=== PATIENT | male | born 1940 | race Hispanic/Latino ===

== ENCOUNTER 2017-11-27 18:57 | Inpatient (IN) | payer MEDICARE ==
[2017-11-27] MEDS ORDERED: DiphenhydrAMINE 50 mg/ml Inj IVP STA (19:37)
[2017-11-27] MEDS ORDERED: Dexamethasone 4 mg/1 ml IVP STA (19:37)
[2017-11-27] MEDS ORDERED: Clindamycin 300 MG in Sodium Chloride 0.9% 50 ML IVPB STA (19:38)
--- NOTE | 2017-11-27 20:04 | ED PDOC ---
HPI: General Adult Time Seen by Provider: 11/27/17 19:27 Chief Complaint (Nursing): Shortness Of Breath Chief Complaint (Provider): Throat pain History Per: Patient History/Exam Limitations: no limitations Onset/Duration Of Symptoms: Days (x2 weeks) Current Symptoms Are (Timing): Still Present Recently: Treated By A Physician Additional Complaint(s): Herson Mccoy is a 77 year old male, with a past medical history of hypertension, hypercholesterolemia, BPH, semi anxiety, and CABG, who presents to the emergency department complaining of throat pain and tongue swelling onset for x2 weeks. Patient reports pain specially with swallowing. Patient saw PMD who referred him to ENT specialist, Dr. Mejia. He saw specialist on , had nasal laryngoscopy done and was advised to gargle with salt water and baking soda 5 times a day. Patient reports the pain is getting increasingly worst and the swelling began radiating from the right side of neck up to his chin and tongue. He tried to see his own doctor but was only able to get a prescription for ibuprofen and azithromycin. Patient took only one dose with mild improvement of pain, but swelling is still persistent. He denies any fever, chills, rhinorrhea or cough. No further medical complaints. PMD: Ritesh Kilpatrick Past Medical History Reviewed: Historical Data, Nursing Documentation, Vital Signs Vital Signs: Last Vital Signs Temp 99.4 F 11/27/17 23:06 Pulse 77 11/27/17 23:06 Resp 18 11/27/17 23:06 BP 138/70 11/27/17 23:06 Pulse Ox 95 11/27/17 23:32 - Medical History PMH: Benign Prostatic Hyperplasia, CAD, HTN, Hypercholesterolemia Denies: Chronic Kidney Disease - Surgical History Surgical History: CABG, Hernia Repair - Family History Family History: States: Unknown Family Hx - Social History Ex-Smoker (has not smoked in the last 12 months): Yes Alcohol: None Drugs: Denies - Home Medications Home Medications: Ambulatory Orders Medication Instructions Recorded Allopurinol [Zyloprim] 300 mg PO DAILY 11/27/17 Aspirin [Lo-Dose Aspirin EC] 81 mg PO DAILY 11/27/17 Atorvastatin [Lipitor] 40 mg PO DAILY 11/27/17 Carvedilol [Coreg] 6.25 mg PO BID 11/27/17 Docusate Sodium [Colace] 100 mg PO DAILY 11/27/17 Furosemide [Lasix] 40 mg PO DAILY 11/27/17 Irbesartan [Avapro] 300 mg PO DAILY 11/27/17 Pantoprazole [Protonix EC Tab] 40 mg PO DAILY 11/27/17 Paroxetine HCl [Paxil] 40 mg PO DAILY 11/27/17 Potassium Chloride [Klor-Con 10] 10 meq PO DAILY 11/27/17 Tamsulosin [Flomax] 0.4 mg PO DAILY 11/27/17 Warfarin [Coumadin] 1 mg PO DAILY 11/27/17 Warfarin [Coumadin] 5 mg PO DAILY 11/27/17 - Allergies Allergies/Adverse Reactions: Allergies Allergy/AdvReac Type Severity Reaction Status Date / Time No Known Allergies Allergy Verified 11/27/17 21:37 Review of Systems ROS Statement: Except As Marked, All Systems Reviewed And Found Negative Constitutional: Negative for: Fever, Chills ENT: Positive for: Mouth Swelling (tongue swelling), Throat Pain. Negative for : Nose Discharge Respiratory: Negative for: Cough Physical Exam - Reviewed Nursing Documentation Reviewed: Yes Vital Signs Reviewed: Yes - Physical Exam Appears: Positive for: Non-toxic Head Exam: Positive for: ATRAUMATIC, NORMAL INSPECTION, NORMOCEPHALIC Skin: Positive for: Normal Color, Warm, Dry ENT: Positive for: Other (raised right side of tongue with mild tongue edema. No trismus, no soft palate or uvula edema. No dental tenderness. Palpable submandibular tenderness to palpation, questionable discrete swelling of submandibular lymph node. Muffled voice. He is able to tolerate secretions. ) Neck: Positive for: Painless ROM, Supple Cardiovascular/Chest: Positive for: Regular Rate, Rhythm. Negative for: Murmur Respiratory: Positive for: Respiratory Distress (mild) Neurologic/Psych: Positive for: Alert, Oriented - Laboratory Results Result Diagrams: 11/27/17 19:50 11/27/17 19:50 - ECG O2 Sat by Pulse Oximetry: 95 (RA) Pulse Ox Interpretation: Normal Medical Decision Making Medical Decision Making: Initial Impression: soft tissue neck swelling. Differential includes but not limited to severe lymphadenitis, Dc's angina, allergic reaction, angioedema At bedside on arrival for possible acute allergic reaction. Initial Plan: --Type and screen --Neck soft tissue w/o contrast [CT] --EKG --CMP --Magnesium --Phosphorus --CBC w/ differential --PTT --PT --Cleocin 300 mg IVPB --Decadron Inj 10 mg IVP --Benadryl 25 mg IVP --Pepcid 40 mg IVP --Blood culture --Rapid Strep Group A Antigen --Reevaluation 20:20 -Discussed case with Dr. Mejia, who recommends CT of neck with and w/o contrast to include possible salivary stones. 21:40 --On reevaluation, pt appears more comfortable, continues to have tongue swelling and elevation but appears slightly decreased from initial evaluation. Patient's speech is improved, but continues to complain of pain in his throat. EXAM: CT Neck Without and With Intravenous Contrast EXAM DATE/TIME: 11/27/2017 8:22 PM ................ IMPRESSION: 1. The tongue is prominent in size, suggesting swelling. 2. There is mild oral pharyngeal and hypopharyngeal soft tissue thickening with right peripharyngeal fat stranding, suggesting soft tissue edema/inflammation. 3. There are multiple punctate calcifications in the pharyngeal tonsils, suggesting tonsiloliths. 4. There is fluid and mucus in the hypopharyngeal airway. 5. There is mild thickening of the right epiglottis, the aryepiglottic folds, and the upper laryngeal soft tissue, suggesting soft tissue edema/inflammation. 6. There is thickening and calcification of the upper cervical posterior longitudinal ligament. 7. There are small calcifications in the bilateral TMJs, suggesting loose bodies. Thank you for allowing us to participate in the care of your patient. Dictated and Authenticated by: Giuseppe Menendez MD 11/27/2017 11:04 PM Eastern Time ([place] & [place]) 11p On reeval pt continues to feel well, sleeps comfortable. However tongue still edematous. Due to concern about airway, will need ICU for initial observation period. DW Lubna VASQUEZ, [facility] Hospitalist and Dr Starkey ENT, who recommends contined IV antibiotics. Scribe Attestation: Documented by Chinmay Perez, acting as a scribe for Jerri Fernandez MD Provider Scribe Attestation: All medical record entries made by the Scribe were at my direction and personally dictated by me. I have reviewed the chart and agree that the record accurately reflects my personal performance of the history, physical exam, medical decision making, and the department course for this patient. I have also personally directed, reviewed, and agree with the discharge instructions and disposition. Disposition - Clinical Impression Clinical Impression: Pharyngeal edema, Tonsillitis, Tongue edema Counseled Patient/Family Regarding: Studies Performed, Diagnosis - Disposition Disposition Time: 23:00 Condition: CRITICAL
[2017-11-27 20:08] LABS: BASO % 0.2 % (0.0-2.0); EOS % 0.2 % (0.0-4.0); HEMOGLOBIN 12.8 g/dL (12.0-18.0); LYMPH # 1.2 K/uL (1.0-4.3); LYMPH % 8.6 % (20.0-40.0); MEAN CELL VOLUME 92.7 fl (80.0-94.0); MEAN CORPUSCULAR HGB CONC 32.4 g/dL (33.0-37.0); MEAN PLATELET VOLUME 8.8 fl (7.2-11.7); MONO # 1.3 K/uL (0.0-0.8); MONO % 9.6 % (0.0-10.0); NEUT # 11.5 K/uL (1.8-7.0); NEUT % 81.4 % (50.0-75.0); PLATELET COUNT 182 K/uL (130-400); RBC 4.27 Mil/uL (4.40-5.90); RED CELL DISTRIBUTION WIDTH 16.6 % (11.5-14.5); WHITE BLOOD COUNT 14.1 K/uL (4.8-10.8)
[2017-11-27 20:28] LABS: PROTHROMBIN TIME 22.3 Seconds (9.8-13.1)
[2017-11-27 20:29] LABS: ALB/GLOB RATIO 1.1 (1.0-2.1); ALT/SGPT 18 U/L (21-72); AST/SGOT 20 U/L (17-59); BLOOD UREA NITROGEN 16 mg/dl (9-20); CALCIUM 9.4 mg/dL (8.4-10.2); GFR AFRICAN-AMERICAN > 60; GFR NON-AFRICAN AMERICAN > 60
[2017-11-27] MEDS ORDERED: Iohexol 300 100 ML IJ ONE (20:56)
[2017-11-27] MEDS ORDERED: Sodium Chloride 0.9% 100 ML ONE (20:56)
[2017-11-27 21:01] LABS: EOSINOPHIL 1 % (0-7); LYMPHOCYTE 8 % (20-50); MONOCYTE 9 % (0-10); NEUTROPHIL 77 % (42-75); REACTIVE LYMPHOCYTES 5 % (0-0); TOTAL CELLS COUNTED 100
[2017-11-27 21:02] LABS: ANISOCYTOSIS SLIGHT; OVALOCYTES SLIGHT; POIKILOCYTOSIS SLIGHT; STOMATOCYTES SLIGHT
[2017-11-27 21:03] LABS: LARGE PLATELETS PRESENT; PLATELET ESTIMATE NORMAL (NORMAL); SPHEROCYTES SLIGHT
[2017-11-27] MEDS ORDERED: Sodium Chloride 0.9% 1,000 ML IV SCH (23:45)
--- NOTE | 2017-11-27 23:49 | CP.PCM.CON ---
History of Present Illness - History of Present Illness History of Present Illness: CC/Reason for ICU: Possible airway compromise HPI: 77 y/o male with HTN, HLD, BPH, CAD, and ?a fib (on coumadin) who comes in with throat pain and tongue swelling. He has had these for two weeks, and was being seen by Dr. Mejia (ENT) who had performed a nasal scope and then advised only to gargle with NaCl and NaHCO3. Patient did this, however, swelling and pain became worse with radiation to R side. He tried to see his regular doctor today, but could not, so came to ER. Found to have tonsillar swelling with concern for airway compromise, so being admitted to ICU pending possible abscess drainage. Patient denies f/c/n/v/d. States no SOB or difficulty breathing. PMD: Ritesh Kilpatrick MHx/SHx: HTN, HLD, BPH, CAD, A fib; CABG Allergies: NKDA Medications: Per Med Rec Family/Social Hx: Reviewed, no relevant findings. No smoking or significant EtOH. Past Patient History - Infectious Disease Hx of Infectious Diseases: None - Past Medical History & Family History Past Medical History?: Yes - Past Social History Alcohol: None Drugs: Denies - CARDIAC Hx Hypercholesterolemia: Yes Hx Hypertension: Yes - PULMONARY Hx Respiratory Disorders: No - NEUROLOGICAL Hx Neurological Disorder: No - HEENT Other/Comment: Tongue swelling - RENAL Hx Chronic Kidney Disease: No - ENDOCRINE/METABOLIC Hx Endocrine Disorders: No - HEMATOLOGICAL/ONCOLOGICAL Hx Blood Disorders: No - INTEGUMENTARY Hx Dermatological Problems: No - MUSCULOSKELETAL/RHEUMATOLOGICAL Hx Falls: Yes - GASTROINTESTINAL Hx Gastrointestinal Disorders: No - GENITOURINARY/GYNECOLOGICAL Hx Genitourinary Disorders: No - PSYCHIATRIC Hx Psychophysiologic Disorder: No Hx Substance Use: No - SURGICAL HISTORY Hx Coronary Artery Bypass Graft: Yes - ANESTHESIA Hx Anesthesia: Yes Hx Anesthesia Reactions: No Meds Allergies/Adverse Reactions: Allergies Allergy/AdvReac Type Severity Reaction Status Date / Time No Known Allergies Allergy Verified 11/27/17 21:37 - Medications Medications: Current Medications Clindamycin Phosphate 600 mg/ (Sodium Chloride) 54 mls @ 54 mls/hr IVPB Q8 GRETA PRN Reason: Protocol Dexamethasone 4 mg/ Sodium (Chloride) 51 mls @ 102 mls/hr IVPB Q6 GRETA Ondansetron HCl (Zofran Inj) 4 mg IVP Q6H PRN PRN Reason: Nausea/Vomiting Pantoprazole Sodium (Protonix Inj) 40 mg IVP DAILY GRETA Physical Exam - Constitutional Appears: No Acute Distress - Head Exam Head Exam: ATRAUMATIC, NORMOCEPHALIC - Eye Exam Eye Exam: EOMI, PERRL - ENT Exam ENT Exam: Mucous Membranes Moist Additional comments: tongue swollen - Neck Exam Neck exam: Positive for: Full Rom - Respiratory Exam Respiratory Exam: Clear to Auscultation Bilateral, NORMAL BREATHING PATTERN Additional comments: no stridor - Cardiovascular Exam Cardiovascular Exam: REGULAR RHYTHM, +S1, +S2 - GI/Abdominal Exam GI & Abdominal Exam: Normal Bowel Sounds, Soft - Extremities Exam Extremities exam: Positive for: full ROM, normal inspection - Neurological Exam Neurological exam: Alert, CN II-XII Intact, Oriented x3 - Psychiatric Exam Psychiatric exam: Normal Affect, Normal Mood - Skin Skin Exam: Dry, Warm Results - Vital Signs Recent Vital Signs: Last Vital Signs Temp 99.4 F 11/27/17 23:06 Pulse 77 11/27/17 23:06 Resp 18 11/27/17 23:06 BP 138/70 11/27/17 23:06 Pulse Ox 95 11/27/17 23:32 - Labs Result Diagrams: 11/27/17 19:50 11/27/17 19:50 Labs: Laboratory Results - last 24 hr 11/27/17 11/27/17 11/27/17 19:50 19:50 19:50 WBC 14.1 H D RBC 4.27 L Hgb 12.8 Hct 39.6 MCV 92.7 D MCH 30.0 MCHC 32.4 L RDW 16.6 H Plt Count 182 MPV 8.8 Neut % (Auto) 81.4 H Lymph % (Auto) 8.6 L [place] % (Auto) 9.6 Eos % (Auto) 0.2 Baso % (Auto) 0.2 Neut # (Auto) 11.5 H Lymph # (Auto) 1.2 [place] # (Auto) 1.3 H Eos # (Auto) 0.0 Baso # (Auto) 0.0 Neutrophils % (Manual) 77 H Lymphocytes % (Manual) 8 L Reactive Lymphs % 5 H Monocytes % (Manual) 9 Eosinophils % (Manual) 1 Platelet Estimate Normal Large Platelets Present Poikilocytosis (manual Slight Anisocytosis (manual) Slight Macrocytosis (manual) Slight Spherocytes Slight Ovalocytes Slight Stomatocytes Slight PT 22.3 H INR 2.0 H APTT 32.0 Sodium 141 Potassium 3.8 Chloride 103 Carbon Dioxide 25 Anion Gap 17 BUN 16 Creatinine 0.8 Est GFR ( Amer) > 60 Est GFR (Non-Af Amer) > 60 Random Glucose 114 H Calcium 9.4 Phosphorus 3.0 Magnesium 2.0 Total Bilirubin 1.2 AST 20 ALT 18 L D Alkaline Phosphatase 80 Total Protein 7.9 Albumin 4.0 Globulin 3.8 Albumin/Globulin Ratio 1.1 Grp A Beta Strep Ag Blood Type Antibody Screen BBK History Checked 11/27/17 11/27/17 19:50 20:25 WBC RBC Hgb Hct MCV MCH MCHC RDW Plt Count MPV Neut % (Auto) Lymph % (Auto) [place] % (Auto) Eos % (Auto) Baso % (Auto) Neut # (Auto) Lymph # (Auto) [place] # (Auto) Eos # (Auto) Baso # (Auto) Neutrophils % (Manual) Lymphocytes % (Manual) Reactive Lymphs % Monocytes % (Manual) Eosinophils % (Manual) Platelet Estimate Large Platelets Poikilocytosis (manual Anisocytosis (manual) Macrocytosis (manual) Spherocytes Ovalocytes Stomatocytes PT INR APTT Sodium Potassium Chloride Carbon Dioxide Anion Gap BUN Creatinine Est GFR ( Amer) Est GFR (Non-Af Amer) Random Glucose Calcium Phosphorus Magnesium Total Bilirubin AST ALT Alkaline Phosphatase Total Protein Albumin Globulin Albumin/Globulin Ratio Grp A Beta Strep Ag Negative Blood Type A POSITIVE Antibody Screen Negative BBK History Checked Patient has bt - EKG Data EKG Interpreted by: Myself EKG shows normal: Sinus rhythm Rate: Normal - EKG Data EKG comments: NSR with multiple PVCs Assessment & Plan (1) Pharyngeal edema Assessment and Plan: 77 y/o male with ?Tonsilar abscess/swelling, oral/tongue swelling; admitted to ICU because of concern for airway. -Admit to ICU -NPO, will hold all medications till AM -Cont decadron and clinda IV -Protonix for GI PPx -Repeat INR in AM as patient on coumadin, as he may have drainage of tonsil done by ENT -ENT consult (Lal[facility]) in AM -SCDs only for DVT PPx; still therapeutic on coumadin Status: Acute (2) Tongue edema Status: Acute (3) Tonsillitis Status: Acute
[2017-11-28] MEDS ORDERED: Dexamethasone 4 mg/1 ml ONE (03:46)
[2017-11-28] MEDS ORDERED: Dexamethasone 4 MG in Sodium Chloride 0.9% 50 ML IVPB SCH (04:00)
[2017-11-28] MEDS: Dexamethasone 4 mg/1 ml IVP SCH ×4 (04:25→22:26)
[2017-11-28] MEDS: Clindamycin 600mg/50ml NS 600 MG/50 ML BAG IVPB SCH ×3 (04:32→19:16)
[2017-11-28 04:55] LABS: INR 2.1 (0.9-1.2); PROTHROMBIN TIME 23.9 Seconds (9.8-13.1)
--- NOTE | 2017-11-28 09:46 | RAD ---
HISTORY: dysphagia COMPARISON: 08/13/2017 FINDINGS: LUNGS: Shallow lung volumes accentuating the central pulmonary vasculature. In addition to crowding, mild pulmonary venous congestion is possible. No consolidation. PLEURA: No significant pleural effusion identified, no pneumothorax apparent. CARDIOVASCULAR: Cardiomegaly para interval midline sternotomy and coronary artery bypass surgery. OSSEOUS STRUCTURES: Thoracic spondylosis. Bilateral shoulder arthrosis. Midline sternotomy. VISUALIZED UPPER ABDOMEN: Normal. OTHER FINDINGS: None. IMPRESSION: Limited exam given more shallow inspiration. In addition to crowding, mild central pulmonary venous congestion is possible. No consolidation Please note: No preliminary interpretation of this examination rendered by emergency department personnel.
--- NOTE | 2017-11-28 10:19 | CT ---
PROCEDURE: CT NECK WITH CONTRAST HISTORY: neck swelling RIGHT side COMPARISON: None TECHNIQUE: CT of the neck with intravenous contrast. Coronal and sagittal reformats generated. Intravenous contrast dose: 95 cc Radiation dose: DLP 840 mGy-cm This CT exam was performed using one or more of the following dose reduction techniques: Automated exposure control, adjustment of the mA and/or kV according to patient size, and/or use of iterative reconstruction technique. FINDINGS: NASOPHARYNX: Unremarkable. SUPRAHYOID NECK: The tongue is prominent consistent with swelling. Right very pharyngeal soft tissue thickening with fat stranding compatible with soft tissue edema/inflammation. Multiple dystrophic like calcifications pharyngeal tonsils /tonsilliths. INFRAHYOID NECK: Fluid/mucous is in the hypopharyngeal airway. Right epiglottic, area right aryepiglottic and upper laryngeal soft tissue thickening compatible TANYA with soft tissue edema/inflammation. The right vallecula and piriform sinuses are effaced. Some thickening of the right vocal cord is suggested GLANDS: Parotid and submandibular glands unremarkable. Normal size thyroid gland, without nodule. LYMPH NODES: Normal. No lymphadenopathy. CERVICAL SPINE: Thickening in ossification of the posterior longitudinal ligament -this encroaches on the spinal canal compartments. Degenerative changes of the each temporomandibular joint also noted VASCULAR STRUCTURES: Atherosclerotic vascular calcifications. OTHER FINDINGS: None. IMPRESSION: Prominent tongue compatible with swelling. Additional oral pharyngeal and hypopharyngeal/laryngeal soft tissue thickening/edema inflammation Tonsilliths. No peritonsillar abscess appreciated Posterior longitudinal thickening and calcification encroach on the spinal canal compartments. Bilateral TMJ senescent changes probable tiny loose bodies. Recommend ENT consultation/ follow-up evaluation Comments: Preliminary report per [facility]rad compatible with this report.
--- NOTE | 2017-11-28 11:07 | CP.CCUPN ---
CCU Subjective - Physician Review Subjective (Free Text): Awake and alert, able to self ambulate in the room, though gait shows mild unsteadiness. Denies any throat pain now, speech still dysarthric at times. Tongue still appears mildly enlarged and swollen, denies any worsening dysphagia. SPO2 95% on RA. Denies any fevers or chills. Other VS and I/Os reviewed. ROS: No other pertinent negs or positives on 10+ system review. PMSFH: All other Nursing and physician documentation reviewed to date; no new pertinent info noted relevant to current medical problems. CXR: ( my interp): hypoexpanded lung elizabeth, haziness over left base. CT Neck results reviewed and mentioned in next section. IMPRESSION / MAJOR PROBLEMS NOW: 1. R/o Right Tonsillar / Submandibular Abscess with R peripharyngeal edema and inflammation, + tonsiloliths, and R epiglottal edema and inflammation. 2. A Fib on therapeutic AC with Warfarin PLAN: 1. Airway and oxygenation observation in ICU over the next 48-72 H. 2. No need for immediate airway protection / maintenance. 3. Empiric abx and steroids started in ED. 4. NPO status for now. ENT f/u regarding any need for surgical drainage, after correction for warfarin-coagulopathy. CCU Objective - Vital Signs / Intake & Output Vital Signs (Last 4 hours): Vital Signs Temp Pulse Pulse Resp BP Pulse Ox 11/28/17 09:42 77 17 96 11/28/17 09:00 77 17 159/78 H 96 11/28/17 08:27 98.8 F 71 20 148/85 11/28/17 07:42 98.8 F 71 20 148/85 97 Intake and Output (Last 8hrs): Intake & Output 11/27/17 11/28/17 11/28/17 22:59 06:59 14:59 Weight 260 lb - Physical Exam Head: Positive for: Normocephalic Pupils: Positive for: PERRL Extroacular Muscles: Positive for: EOMI Conjunctiva: Positive for: Normal Ears: Positive for: Normal Mouth: Positive for: Moist Mucous Membranes. Negative for: Normal Tounge ( enlarged) Pharnyx: Positive for: Muffled/Hoarse Voice Neck: Positive for: Normal Range of Motion, Trachea Midline, Other (R anterior cervical fullness). Negative for: JVD Respiratory/Chest: Positive for: Clear to Auscultation, Decreased Breath Sounds Cardiovascular: Positive for: Irregular Rhythm. Negative for: Murmurs, Rub Abdomen: Positive for: Normal Bowel Sounds. Negative for: Tenderness, Distention, Mass/Organomegaly Lower Extremity: Positive for: Edema, NORMAL PULSES. Negative for: CALF TENDERNESS, Cyanosis Neurological: Positive for: GCS=15, CN II-XII Intact, Motor Func Grossly Intact , Normal Sensory Function Skin: Positive for: Warm, Dry. Negative for: Rashes - Medications Active Medications: Active Medications Generic Name Dose Route Start Last Admin Trade Name Freq PRN Reason Stop Dose Admin Allopurinol 300 mg 11/29/17 09:00 Zyloprim PO DAILY [facility] Aspirin 81 mg 11/29/17 09:00 Ecotrin PO DAILY [facility] Atorvastatin Calcium 40 mg 11/29/17 09:00 Lipitor PO DAILY [facility] Carvedilol 12.5 mg 11/28/17 17:00 Coreg PO BID [facility] Dexamethasone 4 mg 11/28/17 04:00 11/28/17 10:07 Decadron Inj IVP 4 mg Q6 GRETA Administration Docusate Sodium 100 mg 11/29/17 09:00 Colace PO DAILY [facility] Furosemide 40 mg 11/29/17 09:00 Lasix PO DAILY [facility] Clindamycin Phosphate 600 mg in 50 mls @ 50 mls/hr 11/28/17 01:00 11/28/17 04 :32 Cleocin In Normal Saline IVPB 50 mls/hr Q8 GRETA Administration Protocol Ondansetron HCl 4 mg 11/27/17 23:38 Zofran Inj IVP Q6H PRN Nausea/Vomiting Pantoprazole Sodium 40 mg 11/29/17 09:00 Protonix Ec Tab PO DAILY [facility] Paroxetine HCl 40 mg 11/29/17 09:00 Paxil PO DAILY [facility] Potassium Chloride 10 meq 11/29/17 09:00 Klor-Con 10 PO DAILY [facility] Tamsulosin HCl 0.4 mg 11/29/17 09:00 Flomax PO DAILY [facility] Warfarin Sodium 1 mg 11/29/17 09:00 Coumadin PO DAILY [facility] Protocol Warfarin Sodium 5 mg 11/29/17 09:00 Coumadin PO DAILY [facility] Protocol - Patient Studies Lab Studies: Lab Studies 02/21/18 02/20/18 02/20/18 Range/Units 04:17 20:25 19:50 WBC (4.8-10.8) K/uL RBC (4.40-5.90) Mil/uL Hgb (12.0-18.0) g/dL Hct (35.0-51.0) % MCV (80.0-94.0) fl MCH (27.0-31.0) pg MCHC (33.0-37.0) g/dL RDW (11.5-14.5) % Plt Count (130-400) K/uL MPV (7.2-11.7) fl Neut % (Auto) (50.0-75.0) % Lymph % (Auto) (20.0-40.0) % Gregory % (Auto) (0.0-10.0) % Eos % (Auto) (0.0-4.0) % Baso % (Auto) (0.0-2.0) % Neut # (Auto) (1.8-7.0) K/uL Lymph # (Auto) (1.0-4.3) K/uL Gregory # (Auto) (0.0-0.8) K/uL Eos # (Auto) (0.0-0.7) K/uL Baso # (Auto) (0.0-0.2) K/uL Neutrophils % (Manual) (42-75) % Lymphocytes % (Manual) (20-50) % Reactive Lymphs % (0-0) % Monocytes % (Manual) (0-10) % Eosinophils % (Manual) (0-7) % Platelet Estimate (NORMAL) Large Platelets Poikilocytosis (manual Anisocytosis (manual) Macrocytosis (manual) Spherocytes Ovalocytes Stomatocytes PT 23.9 H (9.8-13.1) Seconds INR 2.1 H (0.9-1.2) APTT (25.6-37.1) Seconds Sodium (132-148) mmol/l Potassium (3.6-5.0) MMOL/L Chloride (98-107) mmol/L Carbon Dioxide (22-30) mmol/L Anion Gap (10-20) BUN (9-20) mg/dl Creatinine (0.8-1.5) mg/dl Est GFR ( Amer) Est GFR (Non-Af Amer) Random Glucose (75-110) mg/dL Calcium (8.4-10.2) mg/dL Phosphorus (2.5-4.5) mg/dl Magnesium (1.6-2.3) MG/DL Total Bilirubin (0.2-1.3) mg/dl AST (17-59) U/L ALT (21-72) U/L Alkaline Phosphatase (38-126) U/L Total Protein (6.3-8.2) G/DL Albumin (3.5-5.0) g/dL Globulin (2.2-3.9) gm/dL Albumin/Globulin Ratio (1.0-2.1) Grp A Beta Strep Ag Negative (NEGATIVE) Blood Type A POSITIVE Antibody Screen Negative BBK History Checked Patient has bt 11/27/17 11/27/17 11/27/17 Range/Units 19:50 19:50 19:50 WBC 14.1 H D (4.8-10.8) K/uL RBC 4.27 L (4.40-5.90) Mil/uL Hgb 12.8 (12.0-18.0) g/dL Hct 39.6 (35.0-51.0) % MCV 92.7 D (80.0-94.0) fl MCH 30.0 (27.0-31.0) pg MCHC 32.4 L (33.0-37.0) g/dL RDW 16.6 H (11.5-14.5) % Plt Count 182 (130-400) K/uL MPV 8.8 (7.2-11.7) fl Neut % (Auto) 81.4 H (50.0-75.0) % Lymph % (Auto) 8.6 L (20.0-40.0) % Gregory % (Auto) 9.6 (0.0-10.0) % Eos % (Auto) 0.2 (0.0-4.0) % Baso % (Auto) 0.2 (0.0-2.0) % Neut # (Auto) 11.5 H (1.8-7.0) K/uL Lymph # (Auto) 1.2 (1.0-4.3) K/uL Gregory # (Auto) 1.3 H (0.0-0.8) K/uL Eos # (Auto) 0.0 (0.0-0.7) K/uL Baso # (Auto) 0.0 (0.0-0.2) K/uL Neutrophils % (Manual) 77 H (42-75) % Lymphocytes % (Manual) 8 L (20-50) % Reactive Lymphs % 5 H (0-0) % Monocytes % (Manual) 9 (0-10) % Eosinophils % (Manual) 1 (0-7) % Platelet Estimate Normal (NORMAL) Large Platelets Present Poikilocytosis (manual Slight Anisocytosis (manual) Slight Macrocytosis (manual) Slight Spherocytes Slight Ovalocytes Slight Stomatocytes Slight PT 22.3 H (9.8-13.1) Seconds INR 2.0 H (0.9-1.2) APTT 32.0 (25.6-37.1) Seconds Sodium 141 (132-148) mmol/l Potassium 3.8 (3.6-5.0) MMOL/L Chloride 103 (98-107) mmol/L Carbon Dioxide 25 (22-30) mmol/L Anion Gap 17 (10-20) BUN 16 (9-20) mg/dl Creatinine 0.8 (0.8-1.5) mg/dl Est GFR ( Amer) > 60 Est GFR (Non-Af Amer) > 60 Random Glucose 114 H (75-110) mg/dL Calcium 9.4 (8.4-10.2) mg/dL Phosphorus 3.0 (2.5-4.5) mg/dl Magnesium 2.0 (1.6-2.3) MG/DL Total Bilirubin 1.2 (0.2-1.3) mg/dl AST 20 (17-59) U/L ALT 18 L D (21-72) U/L Alkaline Phosphatase 80 (38-126) U/L Total Protein 7.9 (6.3-8.2) G/DL Albumin 4.0 (3.5-5.0) g/dL Globulin 3.8 (2.2-3.9) gm/dL Albumin/Globulin Ratio 1.1 (1.0-2.1) Grp A Beta Strep Ag (NEGATIVE) Blood Type Antibody Screen BBK History Checked Laboratory Results - last 24 hr 11/27/17 11/27/17 11/27/17 19:50 19:50 19:50 WBC 14.1 H D RBC 4.27 L Hgb 12.8 Hct 39.6 MCV 92.7 D MCH 30.0 MCHC 32.4 L RDW 16.6 H Plt Count 182 MPV 8.8 Neut % (Auto) 81.4 H Lymph % (Auto) 8.6 L Gregory % (Auto) 9.6 Eos % (Auto) 0.2 Baso % (Auto) 0.2 Neut # (Auto) 11.5 H Lymph # (Auto) 1.2 Gregory # (Auto) 1.3 H Eos # (Auto) 0.0 Baso # (Auto) 0.0 Neutrophils % (Manual) 77 H Lymphocytes % (Manual) 8 L Reactive Lymphs % 5 H Monocytes % (Manual) 9 Eosinophils % (Manual) 1 Platelet Estimate Normal Large Platelets Present Poikilocytosis (manual Slight Anisocytosis (manual) Slight Macrocytosis (manual) Slight Spherocytes Slight Ovalocytes Slight Stomatocytes Slight PT 22.3 H INR 2.0 H APTT 32.0 Sodium 141 Potassium 3.8 Chloride 103 Carbon Dioxide 25 Anion Gap 17 BUN 16 Creatinine 0.8 Est GFR ( Amer) > 60 Est GFR (Non-Af Amer) > 60 Random Glucose 114 H Calcium 9.4 Phosphorus 3.0 Magnesium 2.0 Total Bilirubin 1.2 AST 20 ALT 18 L D Alkaline Phosphatase 80 Total Protein 7.9 Albumin 4.0 Globulin 3.8 Albumin/Globulin Ratio 1.1 Grp A Beta Strep Ag Blood Type Antibody Screen BBK History Checked 11/27/17 11/27/17 11/28/17 19:50 20:25 04:17 WBC RBC Hgb Hct MCV MCH MCHC RDW Plt Count MPV Neut % (Auto) Lymph % (Auto) Gregory % (Auto) Eos % (Auto) Baso % (Auto) Neut # (Auto) Lymph # (Auto) Gregory # (Auto) Eos # (Auto) Baso # (Auto) Neutrophils % (Manual) Lymphocytes % (Manual) Reactive Lymphs % Monocytes % (Manual) Eosinophils % (Manual) Platelet Estimate Large Platelets Poikilocytosis (manual Anisocytosis (manual) Macrocytosis (manual) Spherocytes Ovalocytes Stomatocytes PT 23.9 H INR 2.1 H APTT Sodium Potassium Chloride Carbon Dioxide Anion Gap BUN Creatinine Est GFR ( Amer) Est GFR (Non-Af Amer) Random Glucose Calcium Phosphorus Magnesium Total Bilirubin AST ALT Alkaline Phosphatase Total Protein Albumin Globulin Albumin/Globulin Ratio Grp A Beta Strep Ag Negative Blood Type A POSITIVE Antibody Screen Negative BBK History Checked Patient has bt Review of Systems - Review of Systems All systems: reviewed and no additional remarkable complaints except (as above) Critical Care Progress Note - Nutrition Nutrition: Nutrition Category Date Time Status Liquid Diet [DIET] Diets 11/28/17 Lunch Active NPO Diet [DIET] Diets 11/27/17 Breakfast Active
--- NOTE | 2017-11-28 11:41 | CP.PCM.HP ---
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 He has had these for about two weeks, and was seen by Dr. Mejia (ENT) who had performed a nasal scope and then advised to gargle with NaCl and NaHCO3. He was also seen by PCP and was prescribed Zithromax. Patient did this, however, swelling and pain became worse with radiation to R side on ED he was found to have tonsillar and tongue swelling and because of concerns for airway compromise he was admitted to ICU. Patient had CABG by Dr Xiong 3 months ago and had been using Irbesartan. Denies Hx of similar episodes in the past. Present on Admission - Present on Admission Any Indicators Present on Admission: Yes History Surgical Site Infection Following: CABG - Mediastinitis Review of Systems - Review of Systems All systems: reviewed and no additional remarkable complaints except - EENT Nose/Mouth/Throat: Sore Throat, Throat Swelling, Tongue Swelling Past Patient History - Infectious Disease Hx of Infectious Diseases: None - Past Medical History & Family History Past Medical History?: Yes - Past Social History Smoking Status: Former Smoker - CARDIAC Hx Cardiac Disorders: Yes (CAD,CABG,HTN,HLD,AFIB) Hx Hypercholesterolemia: Yes Hx Hypertension: Yes - PULMONARY Hx Respiratory Disorders: No Hx Sleep Apnea: Yes (uses cpap @ home) - NEUROLOGICAL Hx Neurological Disorder: No - HEENT Hx HEENT Problems: No - RENAL Hx Chronic Kidney Disease: No - ENDOCRINE/METABOLIC Hx Endocrine Disorders: No - HEMATOLOGICAL/ONCOLOGICAL Hx Blood Disorders: No Hx AIDS: No Hx Blood Transfusions: No Hx Human Immunodeficiency Virus (HIV): No - INTEGUMENTARY Hx Dermatological Problems: No - MUSCULOSKELETAL/RHEUMATOLOGICAL Hx Musculoskeletal Disorders: No Hx Falls: No Hx Unsteady Gait: Yes - GASTROINTESTINAL Hx Gastrointestinal Disorders: No - GENITOURINARY/GYNECOLOGICAL Hx Genitourinary Disorders: Yes (BPH) - PSYCHIATRIC Hx Psychophysiologic Disorder: No Hx Substance Use: No Other/Comment: former smoker - SURGICAL HISTORY Hx Surgeries: Yes Hx Coronary Artery Bypass Graft: Yes - ANESTHESIA Hx Anesthesia: Yes Hx Anesthesia Reactions: No Meds Allergies/Adverse Reactions: Allergies Allergy/AdvReac Type Severity Reaction Status Date / Time No Known Allergies Allergy Verified 11/27/17 21:37 Physical Exam - Constitutional Appears: Non-toxic, No Acute Distress - Head Exam Head Exam: ATRAUMATIC - Eye Exam Eye Exam: EOMI, PERRL - ENT Exam ENT Exam: Mucous Membranes Moist Additional comments: Tongue swollen. R/tonsil swelling - Neck Exam Neck exam: Positive for: Full Rom. Negative for: Tenderness, Thyromegaly - Respiratory Exam Respiratory Exam: Clear to Auscultation Bilateral, NORMAL BREATHING PATTERN. absent: Rales, Wheezes - Cardiovascular Exam Cardiovascular Exam: REGULAR RHYTHM, +S1, +S2. absent: Gallop - GI/Abdominal Exam GI & Abdominal Exam: Normal Bowel Sounds, Soft. absent: Guarding, Rebound, Tenderness - Extremities Exam Extremities exam: Positive for: normal capillary refill. Negative for: calf tenderness - Neurological Exam Neurological exam: Alert, Normal Gait, Oriented x3 - Psychiatric Exam Psychiatric exam: Normal Affect, Normal Mood - Skin Skin Exam: Normal Color, Warm Results - Vital Signs Recent Vital Signs: Last Vital Signs Temp 98.8 F 11/28/17 08:27 Pulse 77 11/28/17 09:42 Resp 17 11/28/17 09:42 BP 159/78 H 11/28/17 09:00 Pulse Ox 96 11/28/17 09:42 - Labs Result Diagrams: 11/27/17 19:50 11/27/17 19:50 Labs: Laboratory Results - last 24 hr 11/27/17 11/27/17 11/27/17 19:50 19:50 19:50 WBC 14.1 H D RBC 4.27 L Hgb 12.8 Hct 39.6 MCV 92.7 D MCH 30.0 MCHC 32.4 L RDW 16.6 H Plt Count 182 MPV 8.8 Neut % (Auto) 81.4 H Lymph % (Auto) 8.6 L Alcorn % (Auto) 9.6 Eos % (Auto) 0.2 Baso % (Auto) 0.2 Neut # (Auto) 11.5 H Lymph # (Auto) 1.2 Alcorn # (Auto) 1.3 H Eos # (Auto) 0.0 Baso # (Auto) 0.0 Neutrophils % (Manual) 77 H Lymphocytes % (Manual) 8 L Reactive Lymphs % 5 H Monocytes % (Manual) 9 Eosinophils % (Manual) 1 Platelet Estimate Normal Large Platelets Present Poikilocytosis (manual Slight Anisocytosis (manual) Slight Macrocytosis (manual) Slight Spherocytes Slight Ovalocytes Slight Stomatocytes Slight PT 22.3 H INR 2.0 H APTT 32.0 Sodium 141 Potassium 3.8 Chloride 103 Carbon Dioxide 25 Anion Gap 17 BUN 16 Creatinine 0.8 Est GFR ( Amer) > 60 Est GFR (Non-Af Amer) > 60 Random Glucose 114 H Calcium 9.4 Phosphorus 3.0 Magnesium 2.0 Total Bilirubin 1.2 AST 20 ALT 18 L D Alkaline Phosphatase 80 Total Protein 7.9 Albumin 4.0 Globulin 3.8 Albumin/Globulin Ratio 1.1 Grp A Beta Strep Ag Blood Type Antibody Screen BBK History Checked 11/27/17 11/27/17 11/28/17 19:50 20:25 04:17 WBC RBC Hgb Hct MCV MCH MCHC RDW Plt Count MPV Neut % (Auto) Lymph % (Auto) Alcorn % (Auto) Eos % (Auto) Baso % (Auto) Neut # (Auto) Lymph # (Auto) Alcorn # (Auto) Eos # (Auto) Baso # (Auto) Neutrophils % (Manual) Lymphocytes % (Manual) Reactive Lymphs % Monocytes % (Manual) Eosinophils % (Manual) Platelet Estimate Large Platelets Poikilocytosis (manual Anisocytosis (manual) Macrocytosis (manual) Spherocytes Ovalocytes Stomatocytes PT 23.9 H INR 2.1 H APTT Sodium Potassium Chloride Carbon Dioxide Anion Gap BUN Creatinine Est GFR ( Amer) Est GFR (Non-Af Amer) Random Glucose Calcium Phosphorus Magnesium Total Bilirubin AST ALT Alkaline Phosphatase Total Protein Albumin Globulin Albumin/Globulin Ratio Grp A Beta Strep Ag Negative Blood Type A POSITIVE Antibody Screen Negative BBK History Checked Patient has bt Assessment & Plan - Assessment and Plan (Free Text) Assessment: 77 y/o M with multiple co-morbidities admitted for throat and tongue swelling. Throat and tongue swelling Improving after hosp treatment Poss Angioedema Irbesartan held for now(Discussed with Cardio) ENT consult appreciated: Will f/u recs C/W Abx and Steroids F/U Abd US to r/o visceromegaly Repeat CXR since previous poor technique F/U Cultures S/P CABG/CAD Cardiology consult. Discussed with Dr Xiong will evaluate patient Stable. No CP HTN Stop ARBs for now Increase Coreg to 12.5mg BID Hx of Afib C/W Coumadin F/U Cardio recs <Ritesh Kilpatrick - Last Filed: 11/28/17 21:30> Results - Vital Signs Recent Vital Signs: Last Vital Signs Temp 98.3 F 11/28/17 16:00 Pulse 75 11/28/17 18:42 Resp 18 11/28/17 18:00 BP 110/54 L 11/28/17 18:42 Pulse Ox 95 11/28/17 18:00 - Labs Result Diagrams: 11/27/17 19:50 11/27/17 19:50 Labs: Laboratory Results - last 24 hr 11/28/17 04:17 PT 23.9 H INR 2.1 H Assessment & Plan - Assessment and Plan (Free Text) Plan: Addendum; Possible NSAID allergy patient had a recent Ibuprofen intake will hold any NSAID Discussed with Dr Cristine Acosta re plans of care and mgt Discussed with Dr Xiong re plans of care Hold Irbesartan. Ritesh Kilpatrick M.D.
--- NOTE | 2017-11-28 12:52 | CON ---
DATE OF CONSULTATION: 11/28/2017 REQUESTING PHYSICIAN: Ritesh Kilpatrick MD REASON FOR CONSULTATION: Tongue edema and sore throat. HISTORY OF PRESENT ILLNESS: This is a 77-year-old male with multiple-day history of tongue swelling and pain on the right side of his throat and neck, which was [id number] in intensity and has been worsening. The patient states he has had throat pain on the right for a month since he had CABG done, however, he get progressively worse about 4 days ago. He presented to the ER, he was placed on steroids and antibiotic. Today, the patient reports decreased pain and swelling of his throat. The pain and swelling that he has was constant and mostly on the right side of his neck. PAST MEDICAL HISTORY: As noted in the chart by me. MEDICATIONS: As noted in the chart by me. ALLERGIES: NO KNOWN DRUG ALLERGIES. PHYSICAL EXAMINATION: HEAD: Atraumatic and normocephalic. FACE: Good facial movements bilaterally. CONSTITUTIONAL: Well developed and well nourished. COMMUNICATION: Communicates well appropriately. EXTERNAL NOSE AND EARS: No masses. No lesions. No erythema. No edema. INTERNAL NOSE: Deviated septum. No masses. No lesions. No erythema. No edema . ORAL CAVITY AND OROPHARYNX: Tongue is mild to moderately edematous. There is no stridor. The patient is breathing well. There is no erythema or edema of the oropharynx. LIPS AND GUMS: No masses. No lesions. No erythema. No edema. NECK: Supple. THYROID: No thyromegaly. No goiter. LYMPH NODES: No lymphadenopathy of the neck. ASSESSMENT AND PLAN: 1. Deviated septum. 2. Enlarged tongue. 3. Pharyngitis on CAT scan. This was reviewed by me. The CAT scan does not reveal any abscesses, just diffuse edema in the pharynx. This could have been a reaction to possible angiotensin converting enzyme inhibitor or allergic reaction; however, there is also a chance like to be infectious in etiology. My recommendation is to keep the patient on steroids and antibiotic. once the swelling is down and the pain is decreased, the patient can tolerate p.o. and he can be discharged home and followup as an outpatient. Hamzah Starkey MD [facility] # [id number]
--- NOTE | 2017-11-28 17:44 | CP.PCM.CON ---
History of Present Illness - History of Present Illness History of Present Illness: I was asked to see patient by Dr Kilpatrick. Patient is a 77 year old male with PMH HTn, CAD s/p CABG sichemic cardiomyopathy , atrial fibrillation who presents with pharyngeal swelling. His symptms began about 2 weeks ago, and he was noted to have pain of the throat, as well as tongue swelling. The patient was admitted and given decadron. he was admitted to ICU for observation. He denies chest pain. Of note, he was previously on Irbesartan. Review of Systems - Constitutional Constitutional: absent: As Per HPI, Anorexia, Chills, Daytime Sleepiness, Excessive Sweating, Fatigue, Fever, Frequent Falls, Headache, Increased Appetite , Lethargy, Malaise, Night Sweats, Snoring, Sleep Apnea, Weight Gain, Weight Loss, Weakness, Other - EENT Eyes: absent: As Per HPI, Blind Spots, Blurred Vision, Change in Vision, Decreased Night Vision, Diplopia, Discharge, Dry Eye, Exophthalmos, Floaters, Irritation, Itchy Eyes, Loss of Peripheral Vision, Pain, Photophobia, Requires Corrective Lenses, Sees Flashes, Spots in Vision, Tunnel Vision, Other Visual Disturbances, Loss of Vision, Other Ears: absent: As Per HPI, Decreased Hearing, Ear Discharge, Ear Pain, Tinnitus, Abnormal Hearing, Disequilibrium, Dizziness, Other Nose/Mouth/Throat: Throat Swelling, Tongue Swelling - Cardiovascular Cardiovascular: absent: As Per HPI, Acrocyanosis, Chest Pain, Chest Pain at Rest , Chest Pain with Activity, Claudication, Diaphoresis, Dyspnea, Dyspnea on Exertion, Edema, Irregular Heart Rhythm, Pain Radiating to Arm/Neck/Jaw, Leg Edema, Leg Ulcers, Lightheadedness, Orthopnea, Palpitations, Paroxysmal Nocturnal Dyspnea, Pedal Edema, Radiating Pain, Rapid Heart Rate, Slow Heart Rate, Syncope, Other - Respiratory Respiratory: absent: As Per HPI, Cough, Dyspnea, Hemoptysis, Dyspnea on Exertion , Wheezing, Snoring, Stridor, Pain on Inspiration, Chest Congestion, Excessive Mucous Production, Change in Mucous Color, Pain with Coughing, Other - Gastrointestinal Gastrointestinal: absent: As Per HPI, Abdominal Pain, Belching, Bloating, Change in Bowel Habits, Change in Stool Character, Coffee Ground Emesis, Constipation, Cramping, Diarrhea, Dyspepsia, Dysphagia, Early Satiety, Excessive Flatus, Fecal Incontinence, Heartburn, Hematemesis, Hematochezia, Loose Stools, Melena, Nausea, Odynophagia, Temesmus, Vomiting, Other - Genitourinary Genitourinary: absent: As Per HPI, Change in Urinary Stream, Difficulty Urinating, Dysuria, Flank Pain, Hematuria, Pyuria, Nocturia, Urinary Incontinence, Urinary Frequency, Urinary Hesitance, Urinary Urgency, Voiding Freq/Small Amts, Freq UTI, Hx Renal/Bladder Calculi, Hx /Renal Surgery, Bladder Distension, Other - Musculoskeletal Musculoskeletal: absent: As Per HPI, Abnormal Gait, Arthralgias, Atrophy, Back Pain, Deformity, Joint Swelling, Limited Range of Motion, Loss of Height, Muscle Cramps, Muscle Weakness, Myalgias, Neck Pain, Numbness, Radiating Pain into Limb, Stiffness, Tingling, Other - Integumentary Integumentary: absent: As Per HPI, Acne, Alopecia, Bleeding Lesions, Change in Hair, Change in Nails, Change in Pigmentation, Changing Lesions, Dry Skin, Erythema, Furuncle, Hirsutism, Lesions, New Lesions, Non-Healing Lesions, Photosensitivity, Pruritus, Rash, Skin Pain, Skin Ulcer, Sores, Striae, Swelling , Unusual Bruising, Wounds, Jaundice, Other - Neurological Neurological: absent: As Per HPI, Abnormal Gait, Abnormal Hearing, Abnormal Movements, Abnormal Speech, Behavioral Changes, Burning Sensations, Confusion, Convulsions, Disequilibrium, Dizziness, Numbness, Focal Weakness, Frequent Falls , Headaches, Lack of Coordination, Loss of Vision, Memory Loss, Paresthesias, Radicular Pain, Restless Legs, Sensory Deficit, Syncope, Tingling, Tremor, Vertigo, Weakness, Other Visual Disturbances, Other - Psychiatric Psychiatric: absent: As Per HPI, Abnormal Sleep Pattern, Anhedonia, Anxiety, Auditory Hallucinations, Behavioral Changes, Change in Appetite, Change in Libido, Confusion, Depression, Difficulty Concentrating, Hallucinations, Homicidal Ideation, Hopelessness, Irritability, Memory Loss, Mood Swings, Panic Attacks, Paranoia, Suicidal Ideation, Visual Hallucinations, Tactile Hallucinations, Other - Endocrine Endocrine: absent: As Per HPI, Change in Body Appearance, Change in Libido, Cold Intolorance, Deepening of Voice, Excessive Sweating, Fatigue, Flushing, Heat Intolorance, Increase in Ring/Shoe/Hat Size, Palpitations, Polydipsia, Polyphagia, Polyuria, Other - Hematologic/Lymphatic Hematologic: absent: As Per HPI, Easy Bleeding, Easy Bruising, Lymphadenopathy, Other Past Patient History - Infectious Disease Hx of Infectious Diseases: None - Past Medical History & Family History Past Medical History?: Yes - Past Social History Smoking Status: Former Smoker - CARDIAC Hx Cardiac Disorders: Yes (CAD,CABG,HTN,HLD,AFIB) Hx Hypercholesterolemia: Yes Hx Hypertension: Yes - PULMONARY Hx Respiratory Disorders: No Hx Sleep Apnea: Yes (uses cpap @ home) - NEUROLOGICAL Hx Neurological Disorder: No - HEENT Hx HEENT Problems: No - RENAL Hx Chronic Kidney Disease: No - ENDOCRINE/METABOLIC Hx Endocrine Disorders: No - HEMATOLOGICAL/ONCOLOGICAL Hx Blood Disorders: No Hx AIDS: No Hx Blood Transfusions: No Hx Human Immunodeficiency Virus (HIV): No - INTEGUMENTARY Hx Dermatological Problems: No - MUSCULOSKELETAL/RHEUMATOLOGICAL Hx Musculoskeletal Disorders: No Hx Falls: No Hx Unsteady Gait: Yes - GASTROINTESTINAL Hx Gastrointestinal Disorders: No - GENITOURINARY/GYNECOLOGICAL Hx Genitourinary Disorders: Yes (BPH) - PSYCHIATRIC Hx Psychophysiologic Disorder: No Hx Substance Use: No Other/Comment: former smoker - SURGICAL HISTORY Hx Surgeries: Yes Hx Coronary Artery Bypass Graft: Yes - ANESTHESIA Hx Anesthesia: Yes Hx Anesthesia Reactions: No Meds Allergies/Adverse Reactions: Allergies Allergy/AdvReac Type Severity Reaction Status Date / Time No Known Allergies Allergy Verified 11/27/17 21:37 - Medications Medications: Current Medications Allopurinol (Zyloprim) 300 mg PO DAILY [facility] Aspirin (Ecotrin) 81 mg PO DAILY [facility] Atorvastatin Calcium (Lipitor) 40 mg PO DAILY [facility] Carvedilol (Coreg) 12.5 mg PO BID [facility] Dexamethasone (Decadron Inj) 4 mg IVP Q6 [facility] Last Admin: 11/28/17 10:07 Dose: 4 mg Docusate Sodium (Colace) 100 mg PO DAILY [facility] Furosemide (Lasix) 40 mg PO DAILY [facility] Clindamycin Phosphate (Cleocin In Normal Saline) 600 mg in 50 mls @ 50 mls/hr IVPB Q8 [facility] PRN Reason: Protocol Last Admin: 11/28/17 11:48 Dose: 50 mls/hr Ondansetron HCl (Zofran Inj) 4 mg IVP Q6H PRN PRN Reason: Nausea/Vomiting Pantoprazole Sodium (Protonix Ec Tab) 40 mg PO DAILY [facility] Paroxetine HCl (Paxil) 40 mg PO DAILY [facility] Potassium Chloride (Klor-Con 10) 10 meq PO DAILY [facility] Tamsulosin HCl (Flomax) 0.4 mg PO DAILY [facility] Physical Exam - Constitutional Appears: Non-toxic - Head Exam Head Exam: NORMAL INSPECTION - Eye Exam Eye Exam: Normal appearance - ENT Exam ENT Exam: Mucous Membranes Moist - Neck Exam Neck exam: Positive for: Full Rom, Tenderness. Negative for: Lymphadenopathy - Respiratory Exam Respiratory Exam: NORMAL BREATHING PATTERN - Cardiovascular Exam Cardiovascular Exam: REGULAR RHYTHM - GI/Abdominal Exam GI & Abdominal Exam: Normal Bowel Sounds - Rectal Exam Rectal Exam: Deferred - Extremities Exam Extremities exam: Negative for: pedal edema - Back Exam Back exam: NORMAL INSPECTION - Neurological Exam Neurological exam: Alert, Oriented x3 - Psychiatric Exam Psychiatric exam: Normal Affect - Skin Skin Exam: Normal Color Results - Vital Signs Recent Vital Signs: Last Vital Signs Temp 98.3 F 11/28/17 16:00 Pulse 71 11/28/17 16:00 Resp 15 11/28/17 16:00 BP 151/84 H 11/28/17 16:00 Pulse Ox 96 11/28/17 16:00 - Labs Result Diagrams: 11/27/17 19:50 11/27/17 19:50 Labs: Laboratory Results - last 24 hr 11/27/17 11/27/17 11/27/17 19:50 19:50 19:50 WBC 14.1 H D RBC 4.27 L Hgb 12.8 Hct 39.6 MCV 92.7 D MCH 30.0 MCHC 32.4 L RDW 16.6 H Plt Count 182 MPV 8.8 Neut % (Auto) 81.4 H Lymph % (Auto) 8.6 L Douglas % (Auto) 9.6 Eos % (Auto) 0.2 Baso % (Auto) 0.2 Neut # (Auto) 11.5 H Lymph # (Auto) 1.2 Douglas # (Auto) 1.3 H Eos # (Auto) 0.0 Baso # (Auto) 0.0 Neutrophils % (Manual) 77 H Lymphocytes % (Manual) 8 L Reactive Lymphs % 5 H Monocytes % (Manual) 9 Eosinophils % (Manual) 1 Platelet Estimate Normal Large Platelets Present Poikilocytosis (manual Slight Anisocytosis (manual) Slight Macrocytosis (manual) Slight Spherocytes Slight Ovalocytes Slight Stomatocytes Slight PT 22.3 H INR 2.0 H APTT 32.0 Sodium 141 Potassium 3.8 Chloride 103 Carbon Dioxide 25 Anion Gap 17 BUN 16 Creatinine 0.8 Est GFR ( Amer) > 60 Est GFR (Non-Af Amer) > 60 Random Glucose 114 H Calcium 9.4 Phosphorus 3.0 Magnesium 2.0 Total Bilirubin 1.2 AST 20 ALT 18 L D Alkaline Phosphatase 80 Total Protein 7.9 Albumin 4.0 Globulin 3.8 Albumin/Globulin Ratio 1.1 Grp A Beta Strep Ag Blood Type Antibody Screen BBK History Checked 11/27/17 11/27/17 11/28/17 19:50 20:25 04:17 WBC RBC Hgb Hct MCV MCH MCHC RDW Plt Count MPV Neut % (Auto) Lymph % (Auto) Douglas % (Auto) Eos % (Auto) Baso % (Auto) Neut # (Auto) Lymph # (Auto) Douglas # (Auto) Eos # (Auto) Baso # (Auto) Neutrophils % (Manual) Lymphocytes % (Manual) Reactive Lymphs % Monocytes % (Manual) Eosinophils % (Manual) Platelet Estimate Large Platelets Poikilocytosis (manual Anisocytosis (manual) Macrocytosis (manual) Spherocytes Ovalocytes Stomatocytes PT 23.9 H INR 2.1 H APTT Sodium Potassium Chloride Carbon Dioxide Anion Gap BUN Creatinine Est GFR ( Amer) Est GFR (Non-Af Amer) Random Glucose Calcium Phosphorus Magnesium Total Bilirubin AST ALT Alkaline Phosphatase Total Protein Albumin Globulin Albumin/Globulin Ratio Grp A Beta Strep Ag Negative Blood Type A POSITIVE Antibody Screen Negative BBK History Checked Patient has bt - EKG Data EKG Interpreted by: Myself Assessment & Plan (1) Atrial fibrillation Assessment and Plan: goal INR 2 to 3 Status: Acute (2) Tongue edema Assessment and Plan: possbily angioedema. responded to steroids. will hold Irebesartan Status: Acute (3) CAD (coronary artery disease) Assessment and Plan: s/p CABG. no angina Status: Chronic (4) HTN (hypertension) Assessment and Plan: if blood pressure is elevated, can increase Coreg. Status: Chronic
--- NOTE | 2017-11-28 22:11 | CARD ---
APPROVED REPORT EKG Measurement Heart [id number] <Conclusion> Sinus rhythm with frequent premature ventricular complexes T wave abnormality, consider inferolateral ischemia Prolonged QT Abnormal ECG
--- NOTE | 2017-11-28 22:29 | RAD ---
HISTORY: Throat swelling. s/p CABG. CHF COMPARISON: Frontal chest radiograph 11/27/2017. TECHNIQUE: Chest PA and lateral FINDINGS: LUNGS: Left basilar linear atelectasis or fibrosis again evident. Heterogeneous lucency may indicate COPD. No acute infiltrate bilaterally. Improved inspiratory volume. PLEURA: No significant pleural effusion identified. No pneumothorax apparent. CARDIOVASCULAR: Stable cardiomegaly. Sternotomy wires again noted. No pulmonary vascular derangement identified. OSSEOUS STRUCTURES: No significant abnormalities. VISUALIZED UPPER ABDOMEN: Normal. OTHER FINDINGS: None. IMPRESSION: No acute infiltrate, pleural effusion or pneumothorax appears stable cardiomegaly. Left basilar linear atelectasis or fibrosis again evident.
[2017-11-29] MEDS: Clindamycin 600mg/50ml NS 600 MG/50 ML BAG IVPB SCH ×2 (01:38→09:01)
[2017-11-29 05:42] LABS: BASO % 0.2 % (0.0-2.0); HEMOGLOBIN 12.2 g/dL (12.0-18.0); LYMPH % 11.6 % (20.0-40.0); MEAN CELL VOLUME 93.1 fl (80.0-94.0); MEAN CORPUSCULAR HEMOGLOBIN 30.6 pg (27.0-31.0); MEAN CORPUSCULAR HGB CONC 32.9 g/dL (33.0-37.0); MONO # 0.4 K/uL (0.0-0.8); MONO % 4.2 % (0.0-10.0); NEUT # 7.2 K/uL (1.8-7.0); RED CELL DISTRIBUTION WIDTH 16.8 % (11.5-14.5); WHITE BLOOD COUNT 8.5 K/uL (4.8-10.8)
[2017-11-29] MEDS: Dexamethasone 4 mg/1 ml IVP SCH ×2 (05:44→10:17)
[2017-11-29 06:03] LABS: BLOOD UREA NITROGEN 34 mg/dl (9-20)
[2017-11-29 06:04] LABS: ALB/GLOB RATIO 1.1 (1.0-2.1); ALBUMIN 3.8 g/dL (3.5-5.0); ALT/SGPT 20 U/L (21-72); AST/SGOT 16 U/L (17-59); CALCIUM 9.4 mg/dL (8.4-10.2); GFR AFRICAN-AMERICAN > 60; GFR NON-AFRICAN AMERICAN > 60
--- NOTE | 2017-11-29 08:43 | US ---
HISTORY: R/O Visceromegaly COMPARISON: None. TECHNIQUE: Sonographic evaluation of the abdomen. FINDINGS: LIVER: Measures 15.8 cm. Normal echogenicity of the liver parenchyma. Left hepatic lobe cyst measuring 1.6 x 1.6 x 1.8 cm. No mass. No intrahepatic bile duct dilatation. GALLBLADDER: Unremarkable. No gallstones. COMMON BILE DUCT: Measures 4 mm. No stones. No dilatation. PANCREAS: Unremarkable as visualized. No mass. No ductal dilatation. RIGHT KIDNEY: Measures 11.2 x 4.7 x 5.2cm. Normal echogenicity. No calculus, mass, or hydronephrosis. LEFT KIDNEY: Measures 11.7 x 4.0 x 4.9cm. Lateral mid/lower pole cyst measuring 2.2 x 1.6 x 2.9 cm. Normal echogenicity. No calculus, mass, or hydronephrosis. SPLEEN: Normal in size and contour. No mass. AORTA: No aneurysmal dilatation. IVC: Unremarkable. OTHER FINDINGS: None. IMPRESSION: Unremarkable abdominal sonogram. Incidental hepatic and left renal cysts.
[2017-11-29] MEDS ORDERED: Potassium Chloride 10 mEq ER Tab PO SCH (09:00)
[2017-11-29] MEDS ORDERED: Pantoprazole 40 mg EC Tab PO SCH (09:00)
--- NOTE | 2017-11-29 09:29 | PQF GENQUE ---
Dr. Kilpatrick, Please clarify the type of atrial fibrillation: if known >> Chronic >> Paroxysmal >> Permanent >> Persistent >> Other (please specify type) >> Clinically unable to determine >> Unknown 11/28: Cardiology consult: (1) Atrial fibrillation Assessment and Plan: goal INR 2 to 3 Status: Acute This form is a permanent part of the medical record Clarification of your documentation is requested to better reflect the severity of illness and intensity of treatment of your patient. Indicators present [] Specify: [] [] Specify: [] [] Specify: [] [] Specify: [] Location in the medical record that reflects the above clinical findings: [] Treatment Provided: [] PHYSICIAN'S RESPONSE Based on your medical judgment of the clinical indicators outlined above please clarify the following: [] Practitioner response [] If unable to determine, please check the box, sign and date. Present On Admission (POA) Indicator: [] Present at the time of admission [] Not present at the time of admission [] Clinically Undetermined In responding to this query, please exercise your independent professional judgment. The fact that a question is asked does not imply that any particular answer is desired or expected. Thank you for your clarification on this documentation. If you have any questions please call. * Thank you, Aure Herrera RN ext. #[phone] MTDD
--- NOTE | 2017-11-29 11:41 | CP.PCM.DIS ---
Provider - Provider Date of Admission: 11/27/17 23:33 Attending physician: Ritesh Kilpatrick MD Primary care physician: Dr Kilpatrick Consults: Cardiology Time Spent in preparation of Discharge (in minutes): 30 Diagnosis - Discharge Diagnosis (1) Angioedema Status: Resolved (2) Atrial fibrillation Status: Chronic (3) Pharyngeal edema Status: Resolved (4) HTN (hypertension) Status: Chronic Hospital Course - Lab Results Lab Results: Micro Results 11/27/17 20:25 Throat Group A Strep Throat Culture - Final NO BETA STREP GROUP A ISOLATED. 11/27/17 21:18 Blood Blood Culture - Preliminary NO GROWTH AFTER 24 HOURS 11/27/17 20:10 Blood Blood Culture - Preliminary NO GROWTH AFTER 24 HOURS Most Recent Lab Values WBC 8.5 K/uL (4.8-10.8) 11/29/17 04:20 RBC 4.00 Mil/uL (4.40-5.90) L 11/29/17 04:20 Hgb 12.2 g/dL (12.0-18.0) 11/29/17 04:20 Hct 37.2 % (35.0-51.0) 11/29/17 04:20 MCV 93.1 fl (80.0-94.0) 11/29/17 04:20 MCH 30.6 pg (27.0-31.0) 11/29/17 04:20 MCHC 32.9 g/dL (33.0-37.0) L 11/29/17 04:20 RDW 16.8 % (11.5-14.5) H 11/29/17 04:20 Plt Count 193 K/uL (130-400) 11/29/17 04:20 MPV 9.0 fl (7.2-11.7) 11/29/17 04:20 Neut % (Auto) 84.0 % (50.0-75.0) H 11/29/17 04:20 Lymph % (Auto) 11.6 % (20.0-40.0) L 11/29/17 04:20 Mclennan % (Auto) 4.2 % (0.0-10.0) 11/29/17 04:20 Eos % (Auto) 0.0 % (0.0-4.0) 11/29/17 04:20 Baso % (Auto) 0.2 % (0.0-2.0) 11/29/17 04:20 Neut # (Auto) 7.2 K/uL (1.8-7.0) H 11/29/17 04:20 Lymph # (Auto) 1.0 K/uL (1.0-4.3) 11/29/17 04:20 Mclennan # (Auto) 0.4 K/uL (0.0-0.8) 11/29/17 04:20 Eos # (Auto) 0.0 K/uL (0.0-0.7) 11/29/17 04:20 Baso # (Auto) 0.0 K/uL (0.0-0.2) 11/29/17 04:20 Neutrophils % (Manual) 77 % (42-75) H 11/27/17 19:50 Lymphocytes % (Manual) 8 % (20-50) L 11/27/17 19:50 Reactive Lymphs % 5 % (0-0) H 11/27/17 19:50 Monocytes % (Manual) 9 % (0-10) 11/27/17 19:50 Eosinophils % (Manual) 1 % (0-7) 11/27/17 19:50 Platelet Estimate Normal (NORMAL) 11/27/17 19:50 Large Platelets Present 11/27/17 19:50 Poikilocytosis (manual Slight 11/27/17 19:50 Anisocytosis (manual) Slight 11/27/17 19:50 Macrocytosis (manual) Slight 11/27/17 19:50 Spherocytes Slight 11/27/17 19:50 Ovalocytes Slight 11/27/17 19:50 Stomatocytes Slight 11/27/17 19:50 PT 23.9 Seconds (9.8-13.1) H 11/28/17 04:17 INR 2.1 (0.9-1.2) H 11/28/17 04:17 APTT 32.0 Seconds (25.6-37.1) 11/27/17 19:50 Sodium 143 mmol/l (132-148) 11/29/17 04:20 Potassium 4.2 MMOL/L (3.6-5.0) 11/29/17 04:20 Chloride 106 mmol/L (98-107) 11/29/17 04:20 Carbon Dioxide 25 mmol/L (22-30) 11/29/17 04:20 Anion Gap 16 (10-20) 11/29/17 04:20 BUN 34 mg/dl (9-20) H 11/29/17 04:20 Creatinine 0.9 mg/dl (0.8-1.5) 11/29/17 04:20 Est GFR ( Amer) > 60 11/29/17 04:20 Est GFR (Non-Af Amer) > 60 11/29/17 04:20 Random Glucose 131 mg/dL (75-110) H 11/29/17 04:20 Calcium 9.4 mg/dL (8.4-10.2) 11/29/17 04:20 Phosphorus 3.0 mg/dl (2.5-4.5) 11/27/17 19:50 Magnesium 2.0 MG/DL (1.6-2.3) 11/27/17 19:50 Total Bilirubin 0.5 mg/dl (0.2-1.3) 11/29/17 04:20 AST 16 U/L (17-59) L 11/29/17 04:20 ALT 20 U/L (21-72) L 11/29/17 04:20 Alkaline Phosphatase 66 U/L (38-126) 11/29/17 04:20 Total Protein 7.3 G/DL (6.3-8.2) 11/29/17 04:20 Albumin 3.8 g/dL (3.5-5.0) 11/29/17 04:20 Globulin 3.5 gm/dL (2.2-3.9) 11/29/17 04:20 Albumin/Globulin Ratio 1.1 (1.0-2.1) 11/29/17 04:20 TSH 3rd Generation 1.88 mIU/ML (0.46-4.68) 11/29/17 04:20 Grp A Beta Strep Ag Negative (NEGATIVE) 11/27/17 20:25 Blood Type A POSITIVE 11/27/17 19:50 Antibody Screen Negative 11/27/17 19:50 BBK History Checked Patient has bt 11/27/17 19:50 - Hospital Course Hospital Course: 77 y/o M with Hx of Afib, CABG and HTN was admitted to hosp because of pharingeal and tongue edema. Patient had been c/o symptoms for the past 3 months. He was treated with Abx and steroids and placed on ICU for precautions in case of airways compromise. Patient responded well treatment. ARBs was DCed with suspicion of angioedema on a patient taking Irbesartan. Today patient swelling is resolved and he is stable to DC home. Advised to stop Irbesartan and Coreg dose increased to 12.5 BID. Evaluated by Cardiology during this admission. Discharge Exam - Head Exam Head Exam: NORMAL INSPECTION - Eye Exam Eye Exam: EOMI, PERRL - ENT Exam ENT Exam: Mucous Membranes Moist Additional comments: markedly improved tongue and pharingeal edema - Neck Exam Neck exam: Full Rom, Normal Inspection - Respiratory Exam Respiratory Exam: Clear to PA & Lateral, NORMAL BREATHING PATTERN, UNREMARKABLE - Cardiovascular Exam Cardiovascular Exam: REGULAR RHYTHM, +S1, +S2. absent: Gallop - Neurological Exam Neurological exam: Alert, Normal Gait, Oriented x3 - Psychiatric Exam Psychiatric exam: Normal Affect, Normal Mood - Skin Skin Exam: Normal Color, Warm Discharge Plan - Discharge Medications Prescriptions: Carvedilol [Coreg] 12.5 mg PO BID #30 tab - Follow Up Plan Condition: GOOD Disposition: HOME/ ROUTINE Patient education suggested?: Yes Additional Instructions: F/U with Dr Kilpatrick next Sunday F/U with Cardiology. Call for appt. Referrals: Ritesh Kilpatrick MD [Family Provider] - Rosy Xiong MD [Staff Provider] -
[2017-11-29 13:02] VITALS: TEMP 98.1
[2017-11-29 16:55] VITALS: BP 114/62; PULSE 0; RESP 0; O2SAT 0
== END 2017-11-29 15:20 | disposition home or self-care (01) | DRG 916 ==
LOC: H.ER 18:57 → H.ERHOLD 23:33 → H.ICU/CCU 11-28 08:46
PROVIDERS: ADMIT Family Medicine; ATTEND Family Medicine
DX: T78.3XXA Angioneurotic edema, initial encounter (principal); I48.2 Chronic atrial fibrillation; I25.5 Ischemic cardiomyopathy; I25.10 Atherosclerotic heart disease of native coronary artery without angina pectoris; G47.30 Sleep apnea, unspecified; Z95.1 Presence of aortocoronary bypass graft; J34.2 Deviated nasal septum; I10 Essential (primary) hypertension; E78.00 Pure hypercholesterolemia, unspecified; Z79.01 Long term (current) use of anticoagulants; N40.0 Benign prostatic hyperplasia without lower urinary tract symptoms; Z87.891 Personal history of nicotine dependence; E78.5 Hyperlipidemia, unspecified; R47.1 Dysarthria and anarthria; J02.9 Acute pharyngitis, unspecified; J03.90 Acute tonsillitis, unspecified